=== PATIENT | female | born 1995 | race Caucasian/White ===

== ENCOUNTER 2018-02-04 12:20 | Observation (INO) | payer OTHER ==
[~2018-02-04] VITALS: Ht 162.6 cm; Wt 77.1 kg
[2018-02-04] MEDS ORDERED: PREN-380 PO (13:02)
[2018-02-04] MEDS ORDERED: FERR324T11 PO (13:02)
[2018-02-04] MEDS ORDERED: TERBUTALINE 1 MG/ML VIAL SUBQ SCH (13:05)
== END 2018-02-04 14:50 | disposition home or self-care (01) ==
LOC: EDBD 12:20 → MLD 12:20 → UNDOADMOB 12:20
PROVIDERS: ADMIT Obstetrics & Gynecology; ATTEND Obstetrics & Gynecology
DX: O62.9 Abnormality of forces of labor, unspecified (principal); Z3A.35 35 weeks gestation of pregnancy
CPT/HCPCS: 36415; 59025; 76805; 85379; G0378; Q0092